=== PATIENT | male | born 1950 | race Caucasian/White ===

== ENCOUNTER 2020-10-24 10:17 | Observation (INO) ==
[2020-10-24] MEDS ORDERED: fentaNYL 100 mcg/2 ml 50 MCG/ML VIAL ONE (11:34)
[2020-10-24] MEDS ORDERED: nitroGLYCERIN DRIP 25,000 MCG/250 ML BTL ONE (11:34)
[2020-10-24] MEDS ORDERED: Heparin 1,000 UNIT/ML 10 ml (10,000 UNITS) CATHLAB/DIALYSIS ONE (11:34)
[2020-10-24] MEDS ORDERED: VERAPAMIL 2.5 MG/ML 2 ML VIAL ** 5 mg/2 ml ONE (11:34)
[2020-10-24] MEDS ORDERED: Iohexol 350 (CONTRAST) 200 ML MDV IV ONE ×2 (11:34→12:20)
[2020-10-24] MEDS ORDERED: Midazolam 5 mg/5 ml VIAL 1 mg/ml 5 ml VIAL (5 mg) ONE (11:34)
[2020-10-24] MEDS ORDERED: Lidocaine 1% VIAL 10 MG/ML VIAL ONE (11:34)
[2020-10-24] MEDS ORDERED: Heparin 2 UNITS/ML 1000 mls 2,000 ML IV ONE (11:34)
[2020-10-24] MEDS ORDERED: Bivalirudin 250 MG VIAL ONE (12:27)
[2020-10-24] MEDS ORDERED: NS 0.9% 1000 ml BAG 1,000 ML IV SCH (13:15)
[2020-10-24 18:09] LABS: Blood Urea Nitrogen 18 mg/dL (6-24); CO2 Carbon Dioxide 26 mmol/L (22-32); Calcium 8.5 mg/dL (8.6-10.3); Chloride 109 mmol/L (101-111); EGFR African American 119.1 (>60); EGFR Non-African American 98.4 (>60); Glucose 81 mg/dL (70-100); Sodium 138 mmol/L (135-145)
[2020-10-24 18:12] LABS: Anion Gap 3 mmol/L (2-11)
[2020-10-24 18:52] LABS: ABS Basophils 0.1 10^3/ul (0-0.2); ABS Eosinophils 0.3 10^3/ul (0-0.6); ABS Lymphocytes 2.5 10^3/ul (1.0-4.8); ABS Monocytes 0.4 10^3/ul (0-0.8); ABS Neutrophils 3.6 10^3/ul (1.5-7.7); Eosinophil % 4.7 %; Hematocrit 41 % (42-52); Hemoglobin 13.4 g/dL (14.0-18.0); Lymphocyte % 35.6 %; Mean Corpuscular HGB Conc 33 g/dL (31-36); Mean Corpuscular Hemoglobin 32 pg (27-31); Mean Corpuscular Volume 98 fL (80-94); Nucleated Red Blood Cells % 0.2; Platelet Count 242 10^3/uL (150-450); Red Blood Count 4.15 10^6 /uL (4.18-5.48); Red Cell Distribution Width 15 % (10-15); White Blood Count 6.9 10^3/uL (3.5-10.8)
[2020-10-24 19:00] LABS: INR 1.18 (0.82-1.09)
[2020-10-25 04:49] LABS: ABS Basophils 0.1 10^3/ul (0-0.2); ABS Eosinophils 0.4 10^3/ul (0-0.6); ABS Lymphocytes 2.2 10^3/ul (1.0-4.8); ABS Monocytes 0.6 10^3/ul (0-0.8); ABS Neutrophils 3.9 10^3/ul (1.5-7.7); Eosinophil % 5.1 %; Hematocrit 40 % (42-52); Hemoglobin 13.4 g/dL (14.0-18.0); Lymphocyte % 31.1 %; Mean Corpuscular HGB Conc 33 g/dL (31-36); Mean Corpuscular Hemoglobin 32 pg (27-31); Mean Corpuscular Volume 95 fL (80-94); Mean Platelet Volume 7.9 fL (7.4-10.4); Platelet Count 217 10^3/uL (150-450); Red Blood Count 4.24 10^6 /uL (4.18-5.48); Red Cell Distribution Width 14 % (10-15); White Blood Count 7.1 10^3/uL (3.5-10.8)
[2020-10-25 05:03] LABS: Anion Gap 7 mmol/L (2-11); Blood Urea Nitrogen 15 mg/dL (6-24); CO2 Carbon Dioxide 19 mmol/L (22-32); Calcium 8.7 mg/dL (8.6-10.3); Chloride 111 mmol/L (101-111); EGFR African American 132.7 (>60); EGFR Non-African American 109.7 (>60); Glucose 85 mg/dL (70-100); Sodium 137 mmol/L (135-145)
[2020-10-25 08:07] LABS: Magnesium 1.8 mg/dL (1.9-2.7); Phosphorus 3.5 mg/dL (2.5-5.0)
[2020-10-25] MEDS ORDERED: Magnesium Sulfate 2 gm BAG 2 GM/50 ML BAG IVPB ONE (08:51)
[2020-10-25 09:08] LABS: Troponin I 0.06 ng/mL (<0.03)
[2020-10-25 11:42] VITALS: BP 123/77
== END 2020-10-25 11:40 | disposition home or self-care (01) ==
LOC: CHICATH 10:17 → INTOOBSV 13:11 → ICU 13:11

== ENCOUNTER 2023-01-24 18:01 | Inpatient (IN) ==
[2023-01-24 19:06] LABS: ABS Basophils 0.1 10^3/uL (0.0-0.1); ABS Eosinophils 0.2 10^3/uL (0.0-0.5); ABS Lymphocytes 0.8 10^3/uL (1.0-4.8); ABS Monocytes 0.2 10^3/uL (0.0-1.1); Hematocrit 40.3 % (38-53); Hemoglobin 13.8 g/dL (13.2-16.3); Lymphocyte % 8.1 %; Mean Corpuscular Hemoglobin 31.3 pg (27-33); Mean Corpuscular Hgb Conc 34.2 g/dL (31-36); Mean Corpuscular Volume 91.6 fL (80-97); Mean Platelet Volume 6.9 fL (7.5-11.2); Platelet Count 282 10^3/uL (150-450); Red Blood Count 4.39 10^6/uL (4.06-5.63); White Blood Count 9.3 10^3/uL (3.6-10.2)
[2023-01-24 19:24] LABS: Albumin 4.1 g/dL (3.2-5.2); Albumin/Globulin Ratio 1.4 (1-3); Calcium 9.2 mg/dL (8.6-10.3); Creatinine, Serum 1.18 mg/dL (0.67-1.17); Globulin 2.9 g/dL (2-4); Potassium 3.8 mmol/L (3.5-5.0); Total Bilirubin 0.5 mg/dL (0.2-1.0); eGFR CKD-EPI 65.6 (>60)
[2023-01-24] MEDS ORDERED: cefTRIAXone 1 gm/50 mL D5W 1 GM/50 ML BAG IV ONE (19:54)
[2023-01-24] MEDS: NS 0.9% 1000 ml BAG 2,000 ML IV ONE (20:01)
[2023-01-24 20:59] LABS: Urine Appearance Cloudy; Urine Bilirubin Negative (Negative); Urine Blood 3+ (Negative); Urine Color Amber; Urine Glucose Negative (Negative); Urine Ketones Negative (Negative); Urine Nitrite Negative (Negative); Urine Protein 2+(100 mg/dL) (Negative); Urine Specific Gravity 1.016 (1.002-1.030); Urine Urobilinogen Negative (Negative)
[2023-01-24] MEDS ORDERED: Digoxin IV 0.5 MG/2 ML AMP (0.25 MG/ML) IV SLOW PU ONE ×2 (21:04→22:53)
[2023-01-24 21:06] LABS: Urine Bacteria Absent (Absent); Urine Red Blood Cell 3+(>10/hpf) (Absent); Urine White Blood Cell 3+(>20/hpf) (Absent)
[2023-01-24] MEDS ORDERED: Gentamicin ADULT 160 MG in NS 0.9% 100 ml BAG 100 ML IVPB ONE (22:34)
[2023-01-24 23:30] LABS: High Sensitivity Troponin 1 Hr 46 pg/mL (<20)
[2023-01-24] MEDS ORDERED: Lactated Ringers 1000 ml BAG 1,000 ML IV ONE (23:36)
[2023-01-25] MEDS ORDERED: Ondansetron 4 mg VIAL 2 MG/ML 2 ml VIAL IV PRN (00:08)
[2023-01-25] MEDS: Lactated Ringers 1000 ml BAG 1,000 ML IV SCH ×2 (01:25→14:31)
[2023-01-25 07:14] LABS: Creatinine, Serum 1.22 mg/dL (0.67-1.17); Magnesium 1.7 mg/dL (1.9-2.7); Potassium 4.1 mmol/L (3.5-5.0)
[2023-01-25] MEDS ORDERED: Magnesium Sulfate 2 gm BAG 2 GM/50 ML BAG IVPB ONE (07:30)
[2023-01-25 09:22] LABS: HDL Cholesterol 44.1 mg/dL
[2023-01-25 11:56] LABS: TSH Ultra Thyroid Stim Horm 1.85 mcIU/mL (0.34-5.60)
[2023-01-25 12:00] LABS: Free T3 2.2 pg/mL (2.5-3.9); Free T4 0.84 ng/dL (0.61-1.12)
[2023-01-25] MEDS: Cefepime 1 GM in Dextrose 1 GM/50 ML BAG IV SCH (18:54)
[2023-01-25] MEDS ORDERED: cefTRIAXone 1 gm/50 mL D5W 1 GM/50 ML BAG IV SCH (20:00)
[2023-01-26] MEDS ORDERED: Lactated Ringers 1000 ml BAG 1,000 ML IV SCH (02:00)
[2023-01-26] MEDS: Cefepime 1 GM in Dextrose 1 GM/50 ML BAG IV SCH ×3 (02:47→18:20)
[2023-01-26 06:01] LABS: ABS Lymphocytes 0.6 10^3/uL (1.0-4.8); ABS Monocytes 0.7 10^3/uL (0.0-1.1); ABS Neutrophils 13.8 10^3/uL (1.5-7.6); Eosinophil % 0.3 %; Hematocrit 40.7 % (38-53); Hemoglobin 13.1 g/dL (13.2-16.3); Lymphocyte % 3.9 %; Mean Corpuscular Hemoglobin 31.2 pg (27-33); Mean Corpuscular Hgb Conc 32.2 g/dL (31-36); Mean Platelet Volume 6.9 fL (7.5-11.2); Platelet Count 168 10^3/uL (150-450); White Blood Count 15.2 10^3/uL (3.6-10.2)
[2023-01-26 06:19] LABS: Calcium 8.1 mg/dL (8.6-10.3); Creatinine, Serum 1.07 mg/dL (0.67-1.17); eGFR CKD-EPI 73.7 (>60)
[2023-01-27] MEDS: Cefepime 1 GM in Dextrose 1 GM/50 ML BAG IV SCH (00:38)
[2023-01-27 06:26] LABS: ABS Basophils 0.1 10^3/uL (0.0-0.1); ABS Eosinophils 0.4 10^3/uL (0.0-0.5); ABS Lymphocytes 1.1 10^3/uL (1.0-4.8); ABS Neutrophils 14.4 10^3/uL (1.5-7.6); ABS Nucleated RBC 0.01 10^3/ul; Eosinophil % 2.6 %; Hematocrit 36.7 % (38-53); Hemoglobin 12.4 g/dL (13.2-16.3); Lymphocyte % 6.5 %; Mean Corpuscular Hemoglobin 31.1 pg (27-33); Mean Corpuscular Hgb Conc 33.8 g/dL (31-36); Mean Corpuscular Volume 92.1 fL (80-97); Mean Platelet Volume 7.3 fL (7.5-11.2); Platelet Count 238 10^3/uL (150-450); Red Blood Count 3.98 10^6/uL (4.06-5.63); Red Cell Distribution Width 14.4 % (12-17)
[2023-01-27] MEDS: NS 0.9% 1000 ml BAG 1,000 ML IV SCH (09:20)
[2023-01-27] MEDS: Cefepime 2 GM in Dextrose 2 GM/50 ML BAG IV SCH ×2 (09:30→21:48)
[2023-01-28 07:55] LABS: ABS Basophils 0.1 10^3/uL (0.0-0.1); ABS Eosinophils 0.4 10^3/uL (0.0-0.5); ABS Neutrophils 10.2 10^3/uL (1.5-7.6); Eosinophil % 2.9 %; Hematocrit 36.1 % (38-53); Hemoglobin 12.5 g/dL (13.2-16.3); Lymphocyte % 8.1 %; Mean Corpuscular Hemoglobin 31.3 pg (27-33); Mean Corpuscular Hgb Conc 34.5 g/dL (31-36); Mean Corpuscular Volume 90.8 fL (80-97); Platelet Count 251 10^3/uL (150-450); Red Blood Count 3.98 10^6/uL (4.06-5.63); Red Cell Distribution Width 14.3 % (12-17); White Blood Count 12.6 10^3/uL (3.6-10.2)
[2023-01-28] MEDS: NS 0.9% 1000 ml BAG 1,000 ML IV SCH (08:52)
[2023-01-28] MEDS: Cefepime 2 GM in Dextrose 2 GM/50 ML BAG IV SCH ×2 (08:54→20:23)
[2023-01-28 17:16] LABS: Hematocrit 36.9 % (38-53); Hemoglobin 12.4 g/dL (13.2-16.3); Mean Corpuscular Hemoglobin 30.7 pg (27-33); Mean Corpuscular Hgb Conc 33.7 g/dL (31-36); Mean Corpuscular Volume 91.2 fL (80-97); Mean Platelet Volume 7.1 fL (7.5-11.2); Platelet Count 277 10^3/uL (150-450); Red Blood Count 4.05 10^6/uL (4.06-5.63); Red Cell Distribution Width 14.3 % (12-17); White Blood Count 11.7 10^3/uL (3.6-10.2)
[2023-01-28 18:10] LABS: ABS Basophils 0.1 10^3/uL (0.0-0.1); ABS Eosinophils 0.4 10^3/uL (0.0-0.5); ABS Lymphocytes 1.8 10^3/uL (1.0-4.8); ABS Monocytes 1.2 10^3/uL (0.0-1.1); ABS Neutrophils 8.3 10^3/uL (1.5-7.6); ABS Nucleated RBC 0.01 10^3/ul; Eosinophil % 3.8 %; RBC Morphology Normal (Normal)
[2023-01-29 06:00] LABS: Hematocrit 35.4 % (38-53); Hemoglobin 12.3 g/dL (13.2-16.3); Mean Corpuscular Hemoglobin 31.4 pg (27-33); Mean Corpuscular Hgb Conc 34.6 g/dL (31-36); Mean Corpuscular Volume 90.6 fL (80-97); Mean Platelet Volume 6.6 fL (7.5-11.2); Platelet Count 262 10^3/uL (150-450); Red Blood Count 3.91 10^6/uL (4.06-5.63); Red Cell Distribution Width 14.3 % (12-17); White Blood Count 10.5 10^3/uL (3.6-10.2)
[2023-01-29 06:17] LABS: Albumin/Globulin Ratio 1.1 (1-3); Calcium 8.3 mg/dL (8.6-10.3); Creatinine, Serum 0.85 mg/dL (0.67-1.17); Globulin 2.8 g/dL (2-4); Potassium 3.5 mmol/L (3.5-5.0); Total Bilirubin 0.4 mg/dL (0.2-1.0); Total Protein 5.8 g/dL (6.4-8.9); eGFR CKD-EPI 92.3 (>60)
[2023-01-29 06:31] LABS: ABS Basophils 0.1 10^3/uL (0.0-0.1); ABS Eosinophils 0.5 10^3/uL (0.0-0.5); ABS Lymphocytes 1.5 10^3/uL (1.0-4.8); ABS Monocytes 0.9 10^3/uL (0.0-1.1); ABS Neutrophils 7.5 10^3/uL (1.5-7.6); ABS Nucleated RBC 0.01 10^3/ul; Eosinophil % 4.9 %; Lymphocyte % 14.3 %; Nucleated Red Blood Cells % 0.1 /100 WBC (0.0-0.4)
[2023-01-29] MEDS: Cefepime 2 GM in Dextrose 2 GM/50 ML BAG IV SCH (08:52)
[2023-01-29 14:36] VITALS: BP 139/77
== END 2023-01-29 18:00 | disposition home or self-care (01) | DRG 872 ==
LOC: ED 18:01 → EDHOLD 01-25 00:08 → SUATTDRO 01-25 00:08 → MEDTELE 01-25 09:56
PROVIDERS: ADMIT Student in an Organized Health Care Education/Training Program; ATTEND Internal Medicine

== ENCOUNTER 2023-10-11 00:50 | Inpatient (IN) ==
[2023-10-11 02:10] LABS: ABS Basophils 0.1 10^3/uL (0.0-0.1); ABS Lymphocytes 0.4 10^3/uL (1.0-4.8); ABS Monocytes 1.1 10^3/uL (0.0-1.1); ABS Neutrophils 19.1 10^3/uL (1.5-7.6); ABS Nucleated RBC 0.01 10^3/ul; Hemoglobin 12.8 g/dL (13.2-16.3); Lymphocyte % 2.1 %; Mean Corpuscular Hemoglobin 30.6 pg (27-33); Mean Corpuscular Hgb Conc 33.7 g/dL (31-36); Mean Corpuscular Volume 90.7 fL (80-97); Mean Platelet Volume 7.4 fL (7.5-11.2); Platelet Count 201 10^3/uL (150-450); Red Blood Count 4.19 10^6/uL (4.06-5.63); Red Cell Distribution Width 14.8 % (12-17); White Blood Count 20.8 10^3/uL (3.6-10.2)
[2023-10-11 02:19] LABS: Activated Partial Thrombo Time 31.3 seconds (26.0-38.0); INR 1.27 (0.83-1.13)
[2023-10-11] MEDS: Lactated Ringers SEPSIS* BAG 2,050 ML IV ONE (02:30)
[2023-10-11 02:55] LABS: Albumin 3.4 g/dL (3.2-5.2); Albumin/Globulin Ratio 1.4 (1-3); C Reactive Protein 270.82 mg/L (<8.01); Calcium 8.4 mg/dL (8.6-10.3); Creatinine, Serum 1.56 mg/dL (0.67-1.17); Globulin 2.5 g/dL (2-4); Potassium 4.2 mmol/L (3.5-5.0); Total Bilirubin 0.6 mg/dL (0.2-1.0); Total Protein 5.9 g/dL (6.4-8.9); eGFR CKD-EPI 46.6 (>60)
[2023-10-11] MEDS: Piperacillin/Tazobac 3.375 BAG 3.375 GM/100 ML BAG IV ONE (02:59)
[2023-10-11 03:32] LABS: High Sensitivity Troponin 1 Hr 39 pg/mL (<20)
[2023-10-11 04:33] LABS: Urine Appearance Turbid; Urine Bilirubin Negative (Negative); Urine Blood 3+ (Negative); Urine Glucose Negative (Negative); Urine Ketones Trace (Negative); Urine Nitrite Negative (Negative); Urine Protein 1+ (>=30 mg/dL) (Negative); Urine Specific Gravity 1.014 (1.002-1.030); Urine Urobilinogen Negative (Negative); Urine pH 6.5 (5.0-8.0)
[2023-10-11 04:56] LABS: Urine Bacteria Absent /HPF (Absent); Urine Red Blood Cell 3+(>10/hpf) /HPF (0-Trace); Urine White Blood Cell 3+(>20/hpf) /HPF (0-Trace)
[2023-10-11 05:25] LABS: Urine Color Light-Brown
[2023-10-11] MEDS: Lactated Ringers 1000 ml BAG 1,000 ML IV SCH (06:49)
[2023-10-11] MEDS: Cefepime 1 GM in Dextrose 1 GM/50 ML BAG IV SCH (10:48)
[2023-10-11] MEDS: Enoxaparin 40 MG/0.4 ML SYR SUBCUT SCH (10:49)
[2023-10-12 06:56] LABS: ABS Eosinophils 0.1 10^3/uL (0.0-0.5); ABS Lymphocytes 1.5 10^3/uL (1.0-4.8); ABS Monocytes 1.4 10^3/uL (0.0-1.1); ABS Neutrophils 14.5 10^3/uL (1.5-7.6); ABS Nucleated RBC 0.01 10^3/ul; Eosinophil % 0.3 %; Hematocrit 40.2 % (38-53); Hemoglobin 13.2 g/dL (13.2-16.3); Lymphocyte % 8.7 %; Mean Corpuscular Hemoglobin 30.2 pg (27-33); Mean Corpuscular Hgb Conc 32.7 g/dL (31-36); Mean Corpuscular Volume 92.1 fL (80-97); Mean Platelet Volume 7.8 fL (7.5-11.2); Nucleated Red Blood Cells % 0.1 %/100WBC (0.0-0.8); Platelet Count 194 10^3/uL (150-450); Red Blood Count 4.37 10^6/uL (4.06-5.63); Red Cell Distribution Width 15.2 % (12-17); White Blood Count 17.5 10^3/uL (3.6-10.2)
[2023-10-12 07:12] LABS: Calcium 8.4 mg/dL (8.6-10.3); Creatinine, Serum 1.07 mg/dL (0.67-1.17); eGFR CKD-EPI 73.3 (>60)
[2023-10-13 05:59] LABS: ABS Basophils 0.1 10^3/uL (0.0-0.1); ABS Eosinophils 0.2 10^3/uL (0.0-0.5); ABS Lymphocytes 1.2 10^3/uL (1.0-4.8); ABS Monocytes 1.1 10^3/uL (0.0-1.1); ABS Neutrophils 9.1 10^3/uL (1.5-7.6); Eosinophil % 1.8 %; Hematocrit 35.8 % (38-53); Hemoglobin 12.2 g/dL (13.2-16.3); Lymphocyte % 10.1 %; Mean Corpuscular Hemoglobin 30.7 pg (27-33); Mean Corpuscular Hgb Conc 34.1 g/dL (31-36); Mean Corpuscular Volume 90.1 fL (80-97); Mean Platelet Volume 7.5 fL (7.5-11.2); Platelet Count 226 10^3/uL (150-450); Red Blood Count 3.98 10^6/uL (4.06-5.63); Red Cell Distribution Width 14.9 % (12-17); White Blood Count 11.6 10^3/uL (3.6-10.2)
[2023-10-13 06:28] LABS: Calcium 8.2 mg/dL (8.6-10.3); Creatinine, Serum 0.94 mg/dL (0.67-1.17); Potassium 3.7 mmol/L (3.5-5.0); eGFR CKD-EPI 85.6 (>60)
[2023-10-13 09:42] VITALS: BP 111/71
== END 2023-10-13 14:00 | disposition home or self-care (01) | DRG 872 ==
LOC: EDHOLD 00:50 → ED 00:50 → SUATTDRO 06:06 → MED 07:59
PROVIDERS: ADMIT Internal Medicine; ATTEND Student in an Organized Health Care Education/Training Program

== ENCOUNTER 2023-12-18 05:02 | Inpatient (IN) ==
[2023-12-18] MEDS ORDERED: cefTRIAXone 2 GM ADDV.VIAL 2 GM in NS 0.9% 100 ml BAG 100 ML IV ONE (05:28)
[2023-12-18 06:11] LABS: ABS Basophils 0.1 10^3/uL (0.0-0.1); ABS Lymphocytes 0.4 10^3/uL (1.0-4.8); ABS Monocytes 1.4 10^3/uL (0.0-1.1); ABS Neutrophils 14.4 10^3/uL (1.5-7.6); Hematocrit 40.1 % (38-53); Hemoglobin 13.4 g/dL (13.2-16.3); Lymphocyte % 2.7 %; Mean Corpuscular Hemoglobin 30.4 pg (27-33); Mean Corpuscular Hgb Conc 33.3 g/dL (31-36); Mean Corpuscular Volume 91.1 fL (80-97); Mean Platelet Volume 7.4 fL (7.5-11.2); Platelet Count 252 10^3/uL (150-450); Red Cell Distribution Width 14.5 % (12-17); White Blood Count 16.3 10^3/uL (3.6-10.2)
[2023-12-18 06:44] LABS: Albumin 3.8 g/dL (3.2-5.2); Albumin/Globulin Ratio 1.5 (1-3); Calcium 8.6 mg/dL (8.6-10.3); Creatinine, Serum 1.42 mg/dL (0.67-1.17); Globulin 2.6 g/dL (2-4); Potassium 3.8 mmol/L (3.5-5.0); Total Bilirubin 0.7 mg/dL (0.2-1.0); Total Protein 6.4 g/dL (6.4-8.9); eGFR CKD-EPI 52.2 (>60)
[2023-12-18] MEDS: cefTRIAXone 2 gm/50 mL D5W 2 GM/50 ML BAG IV ONE (07:40)
[2023-12-18] MEDS: Lactated Ringers 1000 ml BAG 1,000 ML IV ONE (07:56)
[2023-12-18 08:06] LABS: Urine Appearance Turbid; Urine Bilirubin Negative (Negative); Urine Blood 3+ (Negative); Urine Color Yellow; Urine Glucose Negative (Negative); Urine Ketones 1+ (Negative); Urine Nitrite Negative (Negative); Urine Protein 1+ (>=30 mg/dL) (Negative); Urine Specific Gravity 1.029 (1.002-1.030); Urine Urobilinogen 1+ (Negative); Urine pH 5.5 (5.0-8.0)
[2023-12-18 08:25] LABS: Urine Bacteria 1+ /HPF (Absent); Urine Red Blood Cell 3+(>10/hpf) /HPF (0-Trace); Urine Squamous Epithelial Cell Present /HPF (Absent); Urine White Blood Cell 3+(>20/hpf) /HPF (0-Trace)
[2023-12-18] MEDS ORDERED: Albuterol HFA INHALER 8 gm MDI INH PRN (11:41)
[2023-12-18] MEDS: Cefepime 2 GM in Dextrose 2 GM/50 ML BAG IV SCH (12:48)
[2023-12-18] MEDS: Lactated Ringers 1000 ml BAG 1,000 ML IV SCH (20:13)
[2023-12-18] MEDS: Heparin 5000 UNITS/ML 1 mL VIAL SUBCUT SCH (21:35)
[2023-12-19] MEDS: Cefepime 2 GM in Dextrose 2 GM/50 ML BAG IV SCH (00:16)
[2023-12-19 06:52] LABS: Hematocrit 38.9 % (38-53); Hemoglobin 13.1 g/dL (13.2-16.3); Mean Corpuscular Hemoglobin 30.3 pg (27-33); Mean Corpuscular Hgb Conc 33.5 g/dL (31-36); Mean Corpuscular Volume 90.3 fL (80-97); Mean Platelet Volume 7.6 fL (7.5-11.2); Platelet Count 205 10^3/uL (150-450); Red Blood Count 4.31 10^6/uL (4.06-5.63); Red Cell Distribution Width 14.1 % (12-17); White Blood Count 20.5 10^3/uL (3.6-10.2)
[2023-12-19 07:09] LABS: Calcium 8.3 mg/dL (8.6-10.3); Creatinine, Serum 1.04 mg/dL (0.67-1.17); Magnesium 1.9 mg/dL (1.9-2.7); Potassium 3.7 mmol/L (3.5-5.0); eGFR CKD-EPI 75.8 (>60)
[2023-12-19 08:18] LABS: ABS Monocytes 1.8 10^3/uL (0.0-1.1); ABS Neutrophils 17.6 10^3/uL (1.5-7.6); Lymphocyte % 5.1 %; RBC Morphology Normal (Normal)
[2023-12-19] MEDS: Lactated Ringers 1000 ml BAG 1,000 ML IV SCH (09:33)
[2023-12-19] MEDS: Aspirin EC 81 mg TAB.EC (enteric coated) PO SCH (09:38)
[2023-12-19] MEDS: Magnesium Sulfate IV 1GM/100ML 1 GM/100 ML BAG IV ONE (09:48)
[2023-12-19 12:46] LABS: Hematocrit 42.9 % (38-53); Hemoglobin 13.9 g/dL (13.2-16.3)
[2023-12-19 12:57] LABS: INR 1.14 (0.83-1.13)
[2023-12-19 22:32] LABS: Hematocrit 35.2 % (38-53); Hemoglobin 11.6 g/dL (13.2-16.3)
[2023-12-20 06:49] LABS: Hemoglobin 12.2 g/dL (13.2-16.3); Mean Corpuscular Hemoglobin 30.1 pg (27-33); Mean Platelet Volume 7.5 fL (7.5-11.2); Platelet Count 237 10^3/uL (150-450); Red Blood Count 4.06 10^6/uL (4.06-5.63); Red Cell Distribution Width 14.6 % (12-17); White Blood Count 15.7 10^3/uL (3.6-10.2)
[2023-12-20 07:04] LABS: Creatinine, Serum 0.98 mg/dL (0.67-1.17); Magnesium 1.9 mg/dL (1.9-2.7); Potassium 3.7 mmol/L (3.5-5.0); eGFR CKD-EPI 81.4 (>60)
[2023-12-20 07:27] LABS: ABS Eosinophils 0.1 10^3/uL (0.0-0.5); ABS Lymphocytes 1.9 10^3/uL (1.0-4.8); ABS Monocytes 1.7 10^3/uL (0.0-1.1); ABS Neutrophils 11.9 10^3/uL (1.5-7.6); Eosinophil % 0.7 %; Lymphocyte % 12.3 %
[2023-12-20] MEDS: Magnesium Sulfate IV 1GM/100ML 1 GM/100 ML BAG IV ONE (09:37)
[2023-12-20] MEDS ORDERED: Lorazepam PYXIS KEY PRN (10:13)
[2023-12-20] MEDS: LORazepam 2 mg VIAL 1 ml IV PUSH ONE (12:25)
[2023-12-20] MEDS: fentaNYL 100 mcg/2 ml 50 MCG/ML VIAL ONE (14:23)
[2023-12-21 06:59] LABS: ABS Basophils 0.1 10^3/uL (0.0-0.1); ABS Eosinophils 0.2 10^3/uL (0.0-0.5); ABS Lymphocytes 1.5 10^3/uL (1.0-4.8); ABS Monocytes 0.8 10^3/uL (0.0-1.1); ABS Neutrophils 7.6 10^3/uL (1.5-7.6); Eosinophil % 2.3 %; Hematocrit 37.1 % (38-53); Hemoglobin 12.7 g/dL (13.2-16.3); Lymphocyte % 14.2 %; Mean Corpuscular Hemoglobin 30.5 pg (27-33); Mean Corpuscular Hgb Conc 34.2 g/dL (31-36); Mean Corpuscular Volume 89.2 fL (80-97); Platelet Count 282 10^3/uL (150-450); Red Blood Count 4.15 10^6/uL (4.06-5.63); Red Cell Distribution Width 14.8 % (12-17); White Blood Count 10.2 10^3/uL (3.6-10.2)
[2023-12-21 07:48] LABS: Calcium 8.2 mg/dL (8.6-10.3); Creatinine, Serum 0.82 mg/dL (0.67-1.17); Potassium 3.9 mmol/L (3.5-5.0); eGFR CKD-EPI 92.8 (>60)
[2023-12-21 13:46] VITALS: BP 145/82
== END 2023-12-21 15:10 | disposition home or self-care (01) | DRG 698 ==
LOC: EDHOLD 05:02 → ED 05:02 → SUATTDRO 11:39 → EDHOLD 15:28 → MED 16:05
PROVIDERS: ADMIT Student in an Organized Health Care Education/Training Program; ATTEND Internal Medicine